=== PATIENT | female | born 1940 | race Caucasian/White ===

== ENCOUNTER 2017-10-30 08:02 | Outpatient (CLI) | payer OTHER | END 2017-10-30 08:08 | disposition home or self-care (01) | LOC: SONOGRAMA 08:02 | DX: M25.511 Pain in right shoulder (principal); M75.21 Bicipital tendinitis, right shoulder ==

== ENCOUNTER 2018-07-12 09:59 | Emergency (ER) | payer OTHER ==
[~2018-07-12] VITALS: Ht 157.5 cm; Wt 117.9 kg
[2018-07-12] MEDS ORDERED: SINGULAIR10 MG PO (10:32)
[2018-07-12] MEDS ORDERED: ASPIR 8181 MG PO (10:33)
[2018-07-12] MEDS ORDERED: GLIMEPIRIDE1 MG PO (10:33)
[2018-07-12] MEDS ORDERED: RESTORIL30 M1 PO (10:33)
[2018-07-12] MEDS ORDERED: AMBIEN5 MG PO (10:34)
== END 2018-07-12 13:52 | disposition home or self-care (01) ==
LOC: ER 09:59
DX: R51 Headache (principal)